=== PATIENT | female | born 1995 | race Hispanic/Latino ===

== ENCOUNTER 2016-06-07 11:10 | Day surgery (SDC) | payer OTHER, MEDICAID ==
[2016-06-07] VITALS (8 sets, daily range): BP systolic 109–120; BP diastolic 56–78; PULSE 64–89; RESP 12–19; O2SAT 98–99
[~2016-06-07] VITALS: Ht 149.9 cm; Wt 68.0 kg
--- NOTE | 2016-06-07 08:12 | PCM.HPANE ---
Patient Data Surgeon Admitting Provider: Attending Provider:Viraj Justice DPM Primary Care Physician:Georgina Galo Other Provider:Richy Maldonado Anesthesia Reason for Visit Right Foot And Ankle Wound Ht/WT & BMI Height (Feet): 4 Height (Inches): 11 Weight (Kilograms): 68.039 Body Mass Index 30.00 Allergies Coded Allergies: No Known Allergies (Verified Allergy, Unknown, 06/06/16) Past Anesthesia History Anesthesia History: Denies:: Anesthesia Reactions, Malignant Hyperthermia Diabetes History Hx Diabetes?: No MRSA MRSA: No Medications Hypertension Medication: No Home Meds Incl Beta Justyn: No Reported Medications Albuterol HFA (Proair HFA)8.5 Gm Hfa.aer.ad2 Puffs INHALATION Q4H PRN For Shortness of Breath #1 INHALER 05/12/15 Discontinued Reported Medications Amoxicillin/Clav K 875-125 mg 875 Mg Tab1 Tab PO BID #28 03/26/16 Discontinued Scripts oxyCODONE 5 Mg Tablet5-10 Mg PO Q6H PRN For Moderate Pain #30 TABLET Prov:Tay Roth MD 03/28/16 Gabapentin (Neurontin)300 Mg [id number] Mg PO BID #60 CAPSULE Prov:Tay Roth MD 03/28/16 Sennosides (Senna)8.6 Mg Iezmfm02.2 Mg PO BID PRN For Constipation #60 TABLET Prov:Tay Roth MD 03/28/16 Polyethylene Glycol 3350 (Miralax)17 Gm Powd.pack17 Gm PO DAILY PRN For Constipation #30 DOSE Prov:Tay Roth MD 03/28/16 Naproxen 250 Mg [id number] Mg PO BIDWM #60 TABLET Prov:Tay Roth MD 03/28/16 History History of ENT Problems?: No HEENT History: Denies:: Cataracts Hearing Problem Sinus Problem Hx of Heart Problems?: Yes Cardiovascular History: Positive for:: Chest Pain (07/2010 RT SIDED PAIN ASSOCIATED W/ CHOLECYSTITIS) Denies:: Congestive Heart Failure Heart Murmur Hypertension Irregular Heartbeat Hx of Respiratory Problem?: Yes Respiratory History: Positive for:: Asthma Use of Inhalers / NEBS Denies:: COPD Emphysema Oxygen Administration Pneumonia Tuberculosis Use of C-PAP Machine Hx Neurologic Problems?: Yes Neurological History: Positive for:: Headaches Denies:: CVA Dizziness Multiple Sclerosis Parkinson's Disease Seizures Hx of GI Problems?: Yes Gastrointestinal History: Positive for:: Gall Bladder Disease (S/P SACHIN) Denies:: Gastroesphageal Reflux Heartburn Hx of Problems?: No Genitourinary History: Denies:: Kidney Stones Urinary Tract Infection Female Hx: Positive for:: Problems with Breasts? (S/P B/L BREAST REDUCTION) Denies:: Currently Skin History: Positive for:: History Skin Disorders? (RT FOOT OPEN WOUND) Denies:: Pressure Ulcers Hx Musculoskeletal Problems?: Yes Musculoskeletal History: Positive for:: Musculoskeletal Trauma (S/P RT ACHILLES TENDON RPR,I&D POST OP ABCESS,RE-REPAIR) Denies:: Back Injury Hx of Psycho/Social Problems?: No Hx Surgeries?: Yes (SACHIN,BREAST REDUCTION,RPR RUPT ACHILLES TENDON RT,I&D POST OP ABCESS RT AC) Hx Any Other Health Problems?: Yes Other History: Positive for:: Hospitalization (RT FOOT INFECTION) Denies:: Cancer Endocrine Disease Thyroid Disease History Blood Transfusions: Denies:: Blood Transfuse Reaction Blood Transfusions Hx Diabetes: No Hx Alcohol Use: NoHx Substance Use: No Smoking Status: Never Smoker Have You Smoked inLast 12 mo: No Stop/Bang S-Snoring: Do You Snore Loudly: No T-Tired: feel tired, fatigued: No O-Obsered: Observed not breath: No P-Blood Pressure: treated: No B- Body Mass Index > 35 kg/m2: No A- Age over 50: No N- Neck Large Circumference: No G- Gender Male: No ALEAJNDRA Total Score: 0 ALEJANDRA Risk Assessment: Low Risk, <3 Yes Risk Assessment Category Category 1A: Patient has history of documented sleep apnea, and HAS NOT received any narcotic, sedative or anesthesia administration during this stay. Category 1B: Patient has history of documented sleep apnea, and HAS received any narcotic , sedative or anesthesia administration during this stay Category 2: Patient has SUSPECTED Obstructive Sleep Apnea, and HAS received any narcotic , sedative or anesthesia administration during this stay. Category 3: Patient has SUSPECTED Obstructive Sleep Apnea and HAS NOT received narcotic, sedative or anesthesia administration during this stay. Category 4: Outpatient in Procedural Areas with known sleep apnea or who screen positive for High Risk via the STOP/BANG questionnaire. Exam Exam General Appearance: Alert, Oriented X3, Cooperative, No Acute Distress HEENT/AIRWAY: MP 1 Lungs: Normal Air Movement Heart: Exam Unremarkable Plan Impression Patient chart reviewed, patient interviewed and anesthestic plan with risks, benefits, and alternatives discussed, and informed consent obtained. NPO Status: MN ASA Physical Status: ASA1 Normal Healthy Anesthetic Plan: GA Bene/Risks/Altern/Consents: Yes HP Complete Prior to Induction: Yes Luke Monge MD Jun 07, 2016 08:12
[~2016-06-07 11:10] MED LIST: ALBU8.5H2 INHALATION; CeFAZolin Inj 2 GM in IV Premix 1 EACH IV ONE; GABA300C PO; OXYC5TAB72 PO
[2016-06-07] MEDS ORDERED: Propofol 10,000 mCg/mL 20 mL Inj ONE (11:11)
[2016-06-07] MEDS ORDERED: Ondansetron 2 mg/mL 2 mL Inj ONE (11:11)
[2016-06-07] MEDS ORDERED: fentaNYL-PF 50 mCg/mL 2 mL Inj ONE (11:11)
[2016-06-07] MEDS ORDERED: Dexamethasone 4 mg/mL Inj ONE (11:11)
[2016-06-07] MEDS ORDERED: Lactated Ringer's 1,000 ML IV ONE (11:45)
[2016-06-07] MEDS ORDERED: CeFAZolin Inj 2 gm / 50mL D5W IV ONE (11:51)
[2016-06-07] MEDS ORDERED: Lactated Ringer's 500 ML IV PRN (12:23)
[2016-06-07] MEDS ORDERED: Lactated Ringer's 1,000 ML IV SCH (12:23)
[2016-06-07] MEDS ORDERED: MetoCLOpramide 5 mg/mL 2 mL Inj IVPUSH PRN (12:25)
[2016-06-07] MEDS ORDERED: Phenylephrine 10,000 mCg/mL Inj IVPUSH PRN (12:25)
[2016-06-07] MEDS ORDERED: HYDROmorphone 1 mg/mL Inj IVPUSH PRN (12:25)
[2016-06-07] MEDS ORDERED: Ondansetron 2 mg/mL 2 mL Inj IVPUSH PRN (12:25)
[2016-06-07] MEDS ORDERED: Albuterol-Ipratropium 3 mL Inhalation Solution NEB PRN (12:25)
[2016-06-07] MEDS ORDERED: EPHEDrine Sulfate 50 mg/mL Inj IVPUSH PRN (12:25)
[2016-06-07] MEDS ORDERED: fentaNYL-PF 50 mCg/mL 2 mL Inj IVPUSH PRN (12:25)
[2016-06-07] MEDS ORDERED: Dexamethasone 4 mg/mL Inj IVPUSH PRN (12:25)
[2016-06-07] MEDS ORDERED: Bupivacaine-MPF 0.5% W/EPI 30 mL Inj INFILTRATE ONE (12:34)
[2016-06-07] MEDS ORDERED: Gentamicin 40 mg/mL 2 mL Inj IRRIGATION ONE (12:35)
--- NOTE | 2016-06-07 13:06 | PCM.PODPO ---
Podiatry Operative Report Date of Service: Jun 07, 2016 Date of Service Jun 07, 2016 Pre Operative Diagnosis Nonhealing wound right posterior medial foot/ankle Post Operative Diagnosis Same as preoperative diagnoses Procedure Primary wound closure right posterior foot/ankle Surgeon Surgeon: Viraj Justice DPM Assistants: None Indication for Procedure Nonhealing chronic ulceration right posterior foot/ankle Findings Wound edges with significant subdermal scar tissue adhesion Details of Procedure Patient was identified in the preoperative holding area. All preoperative comorbidities and allergies were identified and thoroughly discussed. Patient was transported to the operating room and placed on the operating room table in normal supine position. The patient was then prepped and draped in the normal aseptic technique. A preoperative block consisting of 10 mL of percent Marcaine with epinephrine was given locally around the right posterior ankle/ foot chronic wound. Attention was first paid to the area of the posterior chronic ulceration which measured 0.4 cm x 0.5 cm x 0.4 cm in depth. A #15 blade was used to make a linear incision approximately 1-1/2 cm proximal and 1/ 2 cm distal to the chronic wound. A Metzenbaum scissor was used to bluntly dissected through subcutaneous tissue. Inspection of the wound edges revealed severe adherence to underlying scar tissue. No exposed tendon was noted within the wound bed. No signs of purulent drainage or infection. The ankle was placed through normal range of motion with tension being applied to the Achilles tendon the Achilles tendon was fully palpable with no deficit noted no tendon was visible through the incision during range of motion. A fresh #15 blade was utilized to reflect scar tissue from wound edge which effectively mobilized the overlying skin both anteriorly and posteriorly. Scar tissue was debrided and removed in whole. The wound edges were freshened with an iris scissor removing the nonhealing portions of the wound edge. This wound was copiously flushed with large amounts of normal saline. Number 3. 0 Vicryl suture was utilized to provide subcutaneous closure. Number 3. 0 Prolene suture was utilized to perform skin closure in a simple suture-type fashion and it was noted that there is no significant tension on the skin edges. This wound was then dressed with Adaptic sterile 4 x 4 gauze and an Tre bandage. Prior to application of the dressing and a postoperative block consisting of 10 mL half percent Marcaine with epinephrine was performed. Grafts, Implants: None Complications There were no periprocedural complications identified. Condition Stable Anesthetic Administered: GA Catheters: None Output, Estimated Blood Loss: 5 Blood Admin during surgery: No Surgical Cast or Splint: None Surgical Specimen Removed: No Specimen sent to Pathology: No Post Operative Plan Nonweightbearing right foot Keep dressing clean dry and intact Follow-up in office in 3 days Contact office with any questions or concerns regarding care Discharge to home when stable Advance diet as tolerated Viraj Justice DPM Jun 07, 2016 13:06
--- NOTE | 2016-06-07 13:08 | PCM.ANEP1 ---
Post Anesthesia Phase 1 PACU Phase 1 Assessment Date of Service: Jun 07, 2016 Vital Signs Vital Signs Date Time Temp Pulse Resp B/P Pulse Ox O2 Delivery O2 Flow Rate FiO2 06/07/16 13:00 84 16 120/67 99 Room Air 06/07/16 12:58 36.4 89 13 117/60 99 Room Air 06/07/16 11:44 36.8 64 16 116/78 98 Room Air Anesthetic Administered: GA Level of Alertness: Awake, talking NEWMAN's with Equal Strength: Yes Pain: No Nausea or Vomiting: No Oxygen Delivery: Room Air Lungs: Normal Air Movement Dermatome Level: Full Sensation Luke Monge MD Jun 07, 2016 13:07
--- NOTE | 2016-06-07 13:11 | PCM.ANEP2 ---
Post Anesthesia Evaluation ASA/CMS Post Anesthesia VS in Patient's Normal Range?: Yes Resp Stable; Airway Patent?: Yes CV Function & Hydration Stable: Yes Mental Status Recovered?: Yes Pain control Satisfactory?: Yes N/V Control Satisfactory?: Yes Luke Monge MD Jun 07, 2016 13:10
== END 2016-06-07 23:59 | disposition home or self-care (01) ==
LOC: SAS 11:10
PROVIDERS: ATTEND Podiatrist Foot & Ankle Surgery
DX: T81.30XA Disruption of wound, unspecified, initial encounter (principal); L97.519 Non-pressure chronic ulcer of other part of right foot with unspecified severity; J45.909 Unspecified asthma, uncomplicated; Z79.51 Long term (current) use of inhaled steroids
CPT/HCPCS: 13160; J0690; J1100; J1580; J2250; J2405; J3010; J7120

== ENCOUNTER 2016-09-30 20:50 | Emergency (ER) | payer OTHER ==
[~2016-09-30] VITALS: Ht 149.9 cm; Wt 70.9 kg
[~2016-09-30 20:50] MED LIST changes: -CeFAZolin Inj 2 GM in IV Premix 1 EACH IV ONE; -GABA300C PO; -OXYC5TAB72 PO
[2016-09-30 21:25] VITALS: BP 114/71; PULSE 71; RESP 16; O2SAT 100
== END 2016-09-30 23:07 | disposition left against medical advice (07) ==
LOC: SED 20:50
DX: R21 Rash and other nonspecific skin eruption (principal); Z53.21 Procedure and treatment not carried out due to patient leaving prior to being seen by health care provider